=== PATIENT | female | born 1970 | race Caucasian/White ===

== ENCOUNTER → 2024-10-26 | Outpatient (CLI) | payer OTHER, SELFPAY ==
--- NOTE | 2024-10-26 15:26 | NEURO ---
NCS and/or EMG Patient Report Ordering Doctor: Katharina Rosado DATE OF SERVICE: 10/26/24 Martha presents with complaints of numbness and tingling in the upper limbs, worse on the right side. Electrodiagnostic findings: Right median motor nerve demonstrates prolonged latency with normal amplitude and conduction velocity. Left median motor nerve demonstrates normal distal latency, amplitude and conduction velocity. Ulnar motor response within normal limits bilaterally. Normal median and ulnar F?wave. Prolonged median sensory latency at the wrist bilaterally with reduced conduction on the right side. Normal ulnar and radial sensory sponsors. Needle EMG testing was performed upper limbs. All muscles tested showed no evidence of denervation with normal motor unit action potentials. Electrodiagnostic impression: This is an abnormal study in the upper limbs 1. Electrodiagnostic findings suggestive of bilateral median mononeuropathy. This is consistent with a mild to moderate right carpal tunnel syndrome and a mild left carpal tunnel syndrome. Multi Select Codes Neurology Neurology Interp Codes: 21955-22 Musc test done w/n test comp (interp) (2) and 10375-51 Nr cndj test 11-12 studies (interp)
== END | disposition home or self-care (01) ==
DX: R20.0 Anesthesia of skin (principal)
CPT/HCPCS: 95886; 95912